=== PATIENT | female | born 1955 | race Caucasian/White ===

== ENCOUNTER 2016-11-30 19:32 | Emergency (ER) | payer OTHER ==
--- NOTE | 2016-11-30 22:44 | ED CLINICAL REPORT ---
Clinical Report - Physicians/Mid Levels [facility] [address] [place] [address] 11/30/2016 19:34 Patient: LORI FLOYD Arrived- By private vehicle. Historian- patient. HISTORY OF PRESENT ILLNESS Chief Complaint: LOWER EXTREMITY SWELLING. Severity is described as being moderate. The quality is noted to be sharp. It is described as radiating (none). This started past few days and is still present. It was gradual in onset and has been constant but is not gone now. The patient has had swelling, but not had redness. No difficulty walking. No bladder dysfunction, bowel dysfunction, sensory loss or motor loss. ( no recent trauma, coughing up blood, or hemoptysis). Patient denies an injury. Similar symptoms previously: None. Recent medical care: The patient was seen recently in a clinic. ( Had labs done at , received a call that D dimer was elevated and instructed to go to the ED immediately.). REVIEW OF SYSTEMS No cough or fever. All systems otherwise negative, except as recorded above. PAST HISTORY No history of DVT. Has not had recent surgery, recent [place] or multiple pulmonary emboli. No history of CHF, cancer, DVT or pulmonary embolism or umbrella filter. Not taking estrogens. Does not have advanced age as a risk factor or immobility as a risk factor. Is not obese. SOCIAL HISTORY Never smoker. No alcohol use or drug use. No recent travel. Is a local resident. ADDITIONAL NOTES The nursing notes have been reviewed. PHYSICAL EXAM Vital Signs: 11/30/2016 19:47 BP: 145/72. HR: 90. RR: 18. O2 saturation: 100%. Temp: 98.2 F. Pain level now: 0/10. Blood pressure normal. Oxygen saturation normal. Appearance: Alert. Oriented X3. No acute distress. Eyes: Pupils equal, round and reactive to light. Eyes normal inspection. ENT: Ears normal. Nose normal. Pharynx normal. Neck: Normal inspection. Neck supple. CVS: Normal heart rate and rhythm. Heart sounds normal. Respiratory: No respiratory distress. Breath sounds normal. Abdomen: Soft and nontender. No organomegaly. Back: Normal inspection. No tenderness. ROM normal. Skin: Skin intact. Skin warm and dry. Normal skin color. Normal skin turgor. Extremities: Bilateral mild 1+ edema of the upper extremities. Lower extremities exhibit normal ROM. No lower extremity edema. Gait: Normal gait. Neuro: Oriented X 3. No motor deficit. LABS, X-RAYS, AND EKG Lower Extremity Sonography: Negative exam. The exam was performed by a model technician. The study was interpreted by the radiologist and discussed with the radiologist. Interpretation time: 22:43. PROGRESS AND PROCEDURES Course of Care: [facility]. 11/30/2016 19:47 BP: 145/72. HR: 90. RR: 18. O2 saturation: 100%. Temp: 98.2 F. Pain level now: 0/10. Vital Signs: have been reviewed. Hypertensive. Heart rate normal. Respiratory rate normal. Oxygen saturation normal. Disposition: Discharged home in good condition. Condition: good. CLINICAL IMPRESSION Bilateral pedal edema secondary to unknown cause. INSTRUCTIONS Follow a low salt diet. Follow-up: Follow up with your doctor in about two days. Call for an appointment. Screening today revealed the patient's blood pressure to be in the hypertensive range. The patient should follow up with a primary care provider for blood pressure management. (Electronically signed by Richie Jacques Dr. 11/30/2016 22:46)
--- NOTE | 2016-11-30 22:44 | ED ORDER SUMMARY ---
..... Patient: LORI FLOYD M OrderSheet [facility] VisitID: [id number] [address] [place] [address] 61y, F Registration Date/Time: 11/30/2016 ORDER SHEET Weight: 79.3 kg (stated) Allergies: Sulfa Antibiotics GENERAL ORDERS: US Venous Bilat Urgent (20:04 11/30/2016 Bartolo Jalloh) ([facility] 20:26 Steve) (22:43 Luis Deliverer [employer]) MEDICATION ORDERS: IV FLUIDS: ORDER SHEET NOTES: [Electronically signed by Richie Jacques Dr. (22:46 11/30/2016)] [Electronically signed by Cinthia Tubbs R.N. (19:35 12/02/2016)] [Electronically locked/signed by Cinthia uTbbs R.N. (19:35 12/02/2016)]
--- NOTE | 2016-11-30 22:44 | ED NURSING NOTES ---
Clinical Report - Nurses [facility] [address] [place] [address] 11/30/2016 19:34 Patient: LORI FLOYD TRIAGE Triage time 19:47 Nov 30 2016. Acuity: LEVEL 3. Chief Complaint: (swelling in left lower leg). 19:52 11/30/16. RODO COMA SCORE: Rodo Coma Scale: 15- eyes open spontaneously (4); best verbal response- oriented x 4 (5); best motor response- obeys commands (6). --19:52 Cinthia Tubbs R.N. 19:47 11/30/16. BP: 145/72. HR: 90. RR: 18. O2 saturation: 100%. Temp: 98.2 F. Pain level now: 0/10. --19:52 Cinthia Tubbs R.N. Weight: 79.3 kg stated. Height/Length: 65 inches Per Patient. BMI: 29.1. --19:47 Cinthia Tubbs R.N. Medications None. --19:49 Cinthia Tubbs R.N. Medication/allergy information source: the patient. --19:52 Cinthia Tubbs R.N. Allergies Sulfa Antibiotics. --19:49 Cinthia Tubbs R.N. History Arrived by private vehicle. Historian: patient. Accompanied by family. ( Went to walk in clinic today for eval and was told bloodwork was elevated and needed workup for dvt). No fever, cough, difficulty breathing or skin rash. Denies muscle aches. SOCIAL HX: Never smoker. Occasional alcohol use. No drug use. No infectious disease exposure. ABUSE ASSESSMENT: No report of abuse. NUTRITIONAL RISK ASSESSMENT: The nutritional risk assessment revealed no deficiencies. FUNCTIONAL ASSESSMENT: Functional assessment: no impairments noted. LEARNING NEEDS ASSESSMENT: The learning needs assessment revealed no barriers. SKIN INTEGRITY ASSESSMENT: Skin integrity risk assessment completed. No skin integrity risk identified. --19:52 Cinthia Tubbs R.N. PROBLEMS: Atypical Chest Pain. Chronic Back Pain. Back Injury. Back Pain. Sciatica. --19:49 Cinthia Tubbs R.N. ADDITIONAL SURGERIES: Appendectomy. Carpal Tunnel Surgery. Cataract Surgery. Cholecystectomy. Hysterectomy. Tonsillectomy. --19:49 Cinthia Tubbs R.N. Interventions ID band on patient. --19:52 Cinthai Tubbs R.N. NURSING PROGRESS NOTES 19:54 11/30/16. The initial plan of care for this patient includes an assessment with efforts to address the patient's anxiety; patient positioning. This plan of care was discussed with the patient. Patient gowned. Reassurance given. Patient identifiers checked. Call light placed in reach. Side rails up x 1. Bed placed in lowest position. Brakes of bed on. Patient ready for evaluation. --19:55 Cinthia Tubbs R.N. 20:30 11/30/16. ( Patient informed US should be here within 1 hour.). --21:42 Cinthia Tubbs R.N. 21:40 11/30/16. ( product technician in room). --21:53 Cinthia Tubbs R.N. Patient waiting for disposition. --22:34 Cinthia Tubbs R.N. DISPOSITION / DISCHARGE 22:57 11/30/16. Condition at departure: improved and stable. The goals identified in the patient's plan of care were met. No learning barriers present. Reviewed referral to a primary care physician for followup. Summary of care provided to patient via paper. Patient verbalized understanding. Written instructions provided in Belarusian. The patient was discharged home and accompanied by spouse. She left the Emergency Department ambulatory and via private vehicle. Spouse driving. --23:18 Cinthia Tubbs R.N. 22:57 11/30/16. BP: 122/78. HR: 88. RR: 16. O2 saturation: 100%. Temp: 98.5 F. Pain level now 0/10. --23:18 Cinthia Tubbs R.N. Departure time: 22:57 Nov 30 2016. --23:18 Cinthia Tubbs R.N. Locked/Released at 12/02/2016 19:35 by Cinthia Tubbs R.N.
--- NOTE | 2016-11-30 22:44 | ED CLINICAL REPORT ---
Clinical Report - Physicians/Mid Levels [facility] [address] [place] [address] 11/30/2016 19:34 Patient: LORI FLOYD Arrived- By private vehicle. Historian- patient. HISTORY OF PRESENT ILLNESS Chief Complaint: LOWER EXTREMITY SWELLING. Severity is described as being moderate. The quality is noted to be sharp. It is described as radiating (none). This started past few days and is still present. It was gradual in onset and has been constant but is not gone now. The patient has had swelling, but not had redness. No difficulty walking. No bladder dysfunction, bowel dysfunction, sensory loss or motor loss. ( no recent trauma, coughing up blood, or hemoptysis). Patient denies an injury. Similar symptoms previously: None. Recent medical care: The patient was seen recently in a clinic. ( Had labs done at , received a call that D dimer was elevated and instructed to go to the ED immediately.). REVIEW OF SYSTEMS No cough or fever. All systems otherwise negative, except as recorded above. PAST HISTORY No history of DVT. Has not had recent surgery, recent [place] or multiple pulmonary emboli. No history of CHF, cancer, DVT or pulmonary embolism or umbrella filter. Not taking estrogens. Does not have advanced age as a risk factor or immobility as a risk factor. Is not obese. SOCIAL HISTORY Never smoker. No alcohol use or drug use. No recent travel. Is a local resident. ADDITIONAL NOTES The nursing notes have been reviewed. PHYSICAL EXAM Vital Signs: 11/30/2016 19:47 BP: 145/72. HR: 90. RR: 18. O2 saturation: 100%. Temp: 98.2 F. Pain level now: 0/10. Blood pressure normal. Oxygen saturation normal. Appearance: Alert. Oriented X3. No acute distress. Eyes: Pupils equal, round and reactive to light. Eyes normal inspection. ENT: Ears normal. Nose normal. Pharynx normal. Neck: Normal inspection. Neck supple. CVS: Normal heart rate and rhythm. Heart sounds normal. Respiratory: No respiratory distress. Breath sounds normal. Abdomen: Soft and nontender. No organomegaly. Back: Normal inspection. No tenderness. ROM normal. Skin: Skin intact. Skin warm and dry. Normal skin color. Normal skin turgor. Extremities: Bilateral mild 1+ edema of the upper extremities. Lower extremities exhibit normal ROM. No lower extremity edema. Gait: Normal gait. Neuro: Oriented X 3. No motor deficit. LABS, X-RAYS, AND EKG Lower Extremity Sonography: Negative exam. The exam was performed by a donor technician. The study was interpreted by the radiologist and discussed with the radiologist. Interpretation time: 22:43. PROGRESS AND PROCEDURES Course of Care: transfer of care to [facility] at shift change. 11/30/2016 19:47 BP: 145/72. HR: 90. RR: 18. O2 saturation: 100%. Temp: 98.2 F. Pain level now: 0/10. Vital Signs: have been reviewed. Hypertensive. Heart rate normal. Respiratory rate normal. Oxygen saturation normal. Disposition: Discharged home in good condition. Condition: good. CLINICAL IMPRESSION Bilateral pedal edema secondary to unknown cause. INSTRUCTIONS Follow a low salt diet. Follow-up: Follow up with your doctor in about two days. Call for an appointment. Screening today revealed the patient's blood pressure to be in the hypertensive range. The patient should follow up with a primary care provider for blood pressure management. (Electronically signed by Richie Jacques Dr. 11/30/2016 22:46)
--- NOTE | 2016-11-30 22:44 | ED NURSING NOTES ---
Clinical Report - Nurses [facility] [address] [place] [address] 11/30/2016 19:34 Patient: LORI FLOYD TRIAGE Triage time 19:47 Nov 30 2016. Acuity: LEVEL 3. Chief Complaint: (swelling in left lower leg). 19:52 11/30/16. RODO COMA SCORE: Rodo Coma Scale: 15- eyes open spontaneously (4); best verbal response- oriented x 4 (5); best motor response- obeys commands (6). --19:52 Cinthia Tubbs R.N. 19:47 11/30/16. BP: 145/72. HR: 90. RR: 18. O2 saturation: 100%. Temp: 98.2 F. Pain level now: 0/10. --19:52 Cinthia Tubbs R.N. Weight: 79.3 kg stated. Height/Length: 65 inches Per Patient. BMI: 29.1. --19:47 Cinthia Tubbs R.N. Medications None. --19:49 Cinthia Tubbs R.N. Medication/allergy information source: the patient. --19:52 Cinthia Tubbs R.N. Allergies Sulfa Antibiotics. --19:49 Cinthia Tubbs R.N. History Arrived by private vehicle. Historian: patient. Accompanied by family. ( Went to walk in clinic today for eval and was told bloodwork was elevated and needed workup for dvt). No fever, cough, difficulty breathing or skin rash. Denies muscle aches. SOCIAL HX: Never smoker. Occasional alcohol use. No drug use. No infectious disease exposure. ABUSE ASSESSMENT: No report of abuse. NUTRITIONAL RISK ASSESSMENT: The nutritional risk assessment revealed no deficiencies. FUNCTIONAL ASSESSMENT: Functional assessment: no impairments noted. LEARNING NEEDS ASSESSMENT: The learning needs assessment revealed no barriers. SKIN INTEGRITY ASSESSMENT: Skin integrity risk assessment completed. No skin integrity risk identified. --19:52 Cinthia Tubbs R.N. PROBLEMS: Atypical Chest Pain. Chronic Back Pain. Back Injury. Back Pain. Sciatica. --19:49 Cinthia Tubbs R.N. ADDITIONAL SURGERIES: Appendectomy. Carpal Tunnel Surgery. Cataract Surgery. Cholecystectomy. Hysterectomy. Tonsillectomy. --19:49 Cinthia Tubbs R.N. Interventions ID band on patient. --19:52 Cinthia Tubbs R.N. NURSING PROGRESS NOTES 19:54 11/30/16. The initial plan of care for this patient includes an assessment with efforts to address the patient's anxiety; patient positioning. This plan of care was discussed with the patient. Patient gowned. Reassurance given. Patient identifiers checked. Call light placed in reach. Side rails up x 1. Bed placed in lowest position. Brakes of bed on. Patient ready for evaluation. --19:55 Cinthia Tubbs R.N. 20:30 11/30/16. ( Patient informed US should be here within 1 hour.). --21:42 Cinthia Tubbs R.N. 21:40 11/30/16. ( system support technician in room). --21:53 Cinthia Tubbs R.N. Patient waiting for disposition. --22:34 Cinthia Tubbs R.N. DISPOSITION / DISCHARGE 22:57 11/30/16. Condition at departure: improved and stable. The goals identified in the patient's plan of care were met. No learning barriers present. Reviewed referral to a primary care physician for followup. Summary of care provided to patient via paper. Patient verbalized understanding. Written instructions provided in Uruguayan. The patient was discharged home and accompanied by spouse. She left the Emergency Department ambulatory and via private vehicle. Spouse driving. --23:18 Cinthia Tubbs R.N. 22:57 11/30/16. BP: 122/78. HR: 88. RR: 16. O2 saturation: 100%. Temp: 98.5 F. Pain level now 0/10. --23:18 Cinthia Tubbs R.N. Departure time: 22:57 Nov 30 2016. --23:18 Cinthia Tubbs R.N. Locked/Released at 12/02/2016 19:35 by Cinthia Tubbs R.N.
--- NOTE | 2016-11-30 22:44 | ED ORDER SUMMARY ---
..... Patient: LORI FLOYD M OrderSheet [facility] VisitID: [id number] [address] [place] [address] 61y, F Registration Date/Time: 11/30/2016 ORDER SHEET Weight: 79.3 kg (stated) Allergies: Sulfa Antibiotics GENERAL ORDERS: US Venous Bilat Urgent (20:04 11/30/2016 Bartolo Jalloh) ([facility] 20:26 Steve) (22:43 Luis Sap Gatherer) MEDICATION ORDERS: IV FLUIDS: ORDER SHEET NOTES: [Electronically signed by Richie Jacques Dr. (22:46 11/30/2016)] [Electronically signed by Cinthia Tubbs R.N. (19:35 12/02/2016)] [Electronically locked/signed by Cinthia Tubbs R.N. (19:35 12/02/2016)]
--- NOTE | 2016-12-01 07:30 | DIAGNOSTIC IMAGING REPORT ---
PROCEDURE: US VENOUS - BILATERAL EXT INDICATION: PAIN TECHNIQUE: Duplex sonography of the deep venous system in both lower extremities was performed. Compression and augmentation techniques were used. COMPARISON: None. FINDINGS: Each interrogated segment of deep vein from the common femoral vein into the calf veins demonstrates normal compressibility, augmentation and/or color Doppler flow without filling defect. No evidence of significant soft-tissue edema, soft-tissue mass or cyst. IMPRESSION: 1. No deep venous thrombosis in either lower extremity.
--- NOTE | 2016-12-02 19:35 | ED MED RECONCILIATION SUMMARY ---
Patient: LORI FLOYD Medication Reconciliation Report [facility] VisitID: [id number] [address] [place] [address] 61y, F Registration Date/Time: 11/30/2016 Weight: 79.3 kg Height/Length: 65 in. BMI: 29.1 ALLERGIES: Sulfa Antibiotics The patient's Home Medications are listed below: NONE. The source(s) of the original Home Medication information: patient The following Medications were given to the patient in the Emergency Department: None. The following Medications were prescribed to the patient: None.
--- NOTE | 2016-12-02 19:35 | ED MAR SUMMARY ---
..... Medication Administration Record [facility] [address], [place] [id number] Patient: LORI FLOYD Liliane Visit ID: [id number] 61y, F Weight: 79.3 kg Height/Length: 65 in BMI: 29.1 ALLERGIES: Sulfa Antibiotics
--- NOTE | 2016-12-02 19:35 | ED MED RECONCILIATION SUMMARY ---
Patient: LORI FLOYD Medication Reconciliation Report [facility] VisitID: [id number] [address] [place] [address] 61y, F Registration Date/Time: 11/30/2016 Weight: 79.3 kg Height/Length: 65 in. BMI: 29.1 ALLERGIES: Sulfa Antibiotics The patient's Home Medications are listed below: NONE. The source(s) of the original Home Medication information: patient The following Medications were given to the patient in the Emergency Department: None. The following Medications were prescribed to the patient: None.
--- NOTE | 2016-12-02 19:35 | ED MAR SUMMARY ---
..... Medication Administration Record [facility] [address] [place], [place] [id number] Patient: LORI FLOYD Liliane Visit ID: [id number] 61y, F Weight: 79.3 kg Height/Length: 65 in BMI: 29.1 ALLERGIES: Sulfa Antibiotics
--- NOTE | 2016-12-02 19:35 | ED DISCHARGE INSTRUCTIONS ---
Patient: LORI FLOYD General Instructions [facility] VisitID: [id number] [place] [address] 61y, F Registration Date/Time: 11/30/2016 Bilateral pedal edema secondary to unknown cause. INSTRUCTIONS Follow a low salt diet. Follow-up: Follow up with your doctor in about two days. Call for an appointment. Screening today revealed the patient's blood pressure to be in the hypertensive range. The patient should follow up with a primary care provider for blood pressure management. ADDITIONAL INFORMATION Leg Swelling [Bilateral] Swelling of the feet, ankles and legs is called "Edema." It is due to excess fluid collecting in the tissues. Because of gravity, excess fluid in the body settles in the lowest part. This is why the legs and feet are most affected. Some of the causes for edema include: Disease of the heart (congestive heart failure or "CHF") Prolonged standing or sitting (with the legs in the down position) Infection of the feet or legs Venous Insufficiency (congestion of blood in the veins of the legs) Varicose veins (dilated veins of the lower leg) Garters, or clothing that constricts your legs. (These will cause venous congestion by restricting blood flow.) Some medicines (hormones such as control pills; some blood pressure medicines, such as calcium channel blockers; steroids; some antidepressants such as MAO inhibitors and tricyclics.) Menstrual periods with fluid retention Renal insufficiency (a form of kidney disease) Liver failure (Some swelling is normal, but a sudden increase in leg swelling or weight gain can be a sign of a dangerous complication of ). Medical treatment will depend on the cause of your swelling. Diuretics (water pills) may be prescribed to remove excess fluid. Home Care: Do not wear garments that constrict your legs (such as garters). Elevate your legs while lying or sitting. If infection, injury or recent surgery is the cause for your swelling, stay off your legs as much as possible until symptoms improve. If your doctor says that your leg swelling is caused by venous insufficiency or varicose veins, do not sit or spinning frame fixer one place for long periods of time. Take breaks and walk about every few hours. Brisk walking is a good exercise and helps circulate the congested blood from your leg. Talk to your doctor about the use of support stockings to prevent daytime leg swelling. If your doctor says that heart disease is the cause of your leg swelling, follow a low-salt diet to prevent excess fluid retention. Follow Up with your doctor or as advised by our staff. Get Prompt Medical Attention if any of the following occur: New or worsening shortness of breath or chest pain Increasing swelling in both legs or ankles Swelling of the abdomen Redness, warmth or swelling in one leg Fever of 100.4F (38C) or higher, or as directed by your healthcare provider Yellow color to the skin or eyes Rapid, unexplained weight gain Low-Salt Diet (2 Grams/Day) This diet eliminates foods that are high in salt and restricts the amount of salt that you cook with. It is most often used for patients with high blood pressure, edema (fluid retention), kidney, liver, and heart disease. Table salt contains the mineral sodium. The body needs sodium to work normally. But too much sodium can make your health problems worse. Your healthcare provider is recommending a low-salt (also called low-sodium) diet for you. Your total daily allowance of salt (sodium) is 2 grams. This equals 2,000 milligrams (mg). It is less than 1 teaspoon of table salt. This means you can have only about 700 mg of sodium at each meal. When you cook, limit the salt you use. And if you can avoid using salt, even better. Do not add salt at the table. So, throw away the saltshaker! When shopping, read the package labels. Salt is often called sodium on the label. Choose foods that are Salt-Free, Low Salt, or Very Low Salt. Note that foods with Reduced Salt may notlower your salt intake enough. Beverages OK: Tea, coffee, carbonated beverages, juices AVOID: Flavored international coffees, electrolyte replacement drinks, sports beverages Bread & Cereals OK: All regular bread, rolls, cereals, cakes; low-salt crackers, matzoh crackers AVOID: Salted crackers, pretzels, popcorn; portuguese toast, pancakes, muffins Fruits & Desserts OK: Ice cream, frozen yogurt, juice bars, gelatin (Jell-O), cookies and pies, sugar, honey, jelly, hard candy AVOID: Most pies, cakes and cookies prepared or processed with salt, instant pudding Meats OK: All fresh meat, fish, poultry, low-salt tuna AVOID: Smoked, pickled, brine-cured, or salted meats or fish. Thisincludes pascual, chipped beef, corned beef, hot dogs, luncheon meats, ham, kosher meats, salt pork, sausage, canned tuna, salted codfish, smokedsalmon, shelton, sardines, or anchovies. Dairy OK: Milk, chocolate milk, hot chocolate mix; eggs, Low Salt cheeses, yogurt, egg substitute AVOID: Processed cheese, cheese spreads, Roquefort, Camembert, and cottage cheese, buttermilk, instant breakfast drink Beans, Potatoes & Pasta OK: Dry beans, split peas, lentils, potatoes, rice, macaroni, noodles, spaghetti without added salt AVOID: Potato chips, tortilla chips, and similar products Soups OK: Low-salt soups and broths made with allowed foods AVOID: Bouillon cubes, soups with smoked or salted meats, regular soup and broth Vegetables OK: Most are okay; low-salt tomato and vegetable juices AVOID: Sauerkraut and other brine-soaked vegetables, pickles and other pickled vegetables, tomato juice, olives Seasoning & Spices OK: Most seasonings are okay. Good substitutes for salt include: fresh herb blends, Tabasco, lemon, garlic, ferraro, vinegar, dry mustard, parsley, cilantro, horseradish, tomato paste, regular margarine, mayonnaise, butter, cream cheese, vegetable oil, cream, low-salt salad dressing and gravy AVOID: Regular ketchup, relishes, pickles, soy sauce, teriyaki sauce, Worcestershire sauce, BBQ sauce, tartar sauce, meat tenderizer, chili sauce, regular gravy, regular salad dressing You have been given the following additional information: Peripheral Edema, Bilateral Diet, Low Salt (2Gm) (Electronically signed by Richie Jacques Dr. 11/30/2016 22:46)
== END 2016-11-30 22:59 | disposition home or self-care (01) ==
LOC: ED SRH 19:32
DX: R60.0 Localized edema (principal); Z88.2 Allergy status to sulfonamides

== ENCOUNTER 2017-01-03 16:36 | Outpatient (CLI) | payer OTHER | END 2017-01-03 23:00 | LOC: LAB SRH 16:36 | DX: I80.9 Phlebitis and thrombophlebitis of unspecified site (principal) | CPT/HCPCS: 90074; 91556 ==